=== PATIENT | male | born 1950 | race Caucasian/White ===

== ENCOUNTER → 2018-02-12 | Outpatient (CLI) | payer MEDICARE, OTHER ==
[~2018-02-12] MED LIST: ASPIRIN 32325 MG/TAB PO; GLUCOSAMINE CHO1 CA1 PO; LOPRESSOR 225 MG/TAB PO; MULTIPLE VITAMI1 CAP PO; PRILOSEC 20MG20 MG PO; ZOCOR 40MG40 MG PO; calcium PO
== END ==
LOC: COL.CARD 10:52
DX: R00.2 Palpitations (principal); R07.9 Chest pain, unspecified

== ENCOUNTER → 2018-02-25 | Outpatient (CLI) | payer MEDICARE, OTHER | LOC: COL.RAD 09:33 | DX: M99.71 Connective tissue and disc stenosis of intervertebral foramina of cervical region (principal); M47.812 Spondylosis without myelopathy or radiculopathy, cervical region ==

== ENCOUNTER 2018-07-02 13:06 | Emergency (ER) | payer MEDICARE, OTHER ==
[2004-11-14 20:17] VITALS: BP 135/89
[~2018-07-02] VITALS: Ht 188 cm; Wt 84.1 kg
[2018-07-02 13:14] VITALS: TEMP 98
[2018-07-02 13:52] LABS: BASO # 0.1 (0.0-0.2); BASO % 0.6 % (0.0-2.0); EOS # 0.3 (0.0-0.7); EOS % 2.9 % (0-4.0); GRAN # 6.1 (1.4-6.5); HEMATOCRIT 43.7 % (42.0-52.0); HEMOGLOBIN 14.7 g/dl (13.5-18.0); LYMPH # 2.4 (1.2-3.4); LYMPH % 25.4 % (20.0-51.0); MEAN CELL VOLUME 94 fl (80.0-100.0); MEAN CORPUSCULAR HEMOGLOBIN 32 pg (27.0-31.0); MEAN CORPUSCULAR HGB CONC 34 g/dl (33.0-37.0); MEAN PLATELET VOLUME 10.3 fl (7.4-10.4); MONO # 0.6 (0.1-0.6); MONO % 6.5 % (1.7-9.3); PLATELET COUNT 214 K/mm3 (130-400); RED BLOOD COUNT 4.65 M/mm3 (4.20-5.60); REDCELL DISTRIBUTION WIDTH-CV 12.1 % (11.5-14.5)
[2018-07-02 14:03] LABS: ALANINE AMINOTRANSFERASE 35 U/L (21-72); ALBUMIN 4.4 gm/dL (3.5-5.0); ALKALINE PHOSPHATASE 92 U/L (50-136); ANION GAP 9 mmol/L (7-16); AST,SGOT 31 U/L (15-37); BILIRUBIN,TOTAL 0.4 mg/dL (0.0-1.0); BLOOD UREA NITROGEN 16 mg/dL (9-20); CALCIUM 9.5 mg/dL (8.4-10.2); CARBON DIOXIDE 28 mmol/L (22-30); CHLORIDE 102 mmol/L (98-107); CREATININE, serum 0.89 mg/dL (0.66-1.25); GLUCOSE 97 mg/dL (74-106); POTASSIUM 4.2 mmol/L (3.4-5.0); SODIUM 139 mmol/L (137-145); TOTAL PROTEIN 7.8 gm/dL (6.4-8.2)
[2018-07-02 14:05] LABS: C-REACTIVE PROTEIN < 0.5 mg/dL (0.0-0.9)
[2018-07-02 14:37] LABS: COLLECTION METHOD CLEAN CATCH
[2018-07-02 14:50] LABS: MUCOUS Present /lpf; PH 5 (5-8); SQUAMOUS EPITHELIAL None Seen /hpf; URINE APPEARANCE Clear; URINE BACTERIA None Seen /hpf; URINE BILIRUBIN Negative (NEGATIVE); URINE BLOOD Negative (NEGATIVE); URINE COLOR Yellow; URINE GLUCOSE Negative (NEGATIVE); URINE KETONE Trace (NEGATIVE); URINE LEUKOCYTE ESTERASE Negative (NEGATIVE); URINE NITRATE Negative (NEGATIVE); URINE PROTEIN(semi-quant) Negative (NEGATIVE); URINE UROBILINOGEN Negative (NEGATIVE)
[2018-07-02 16:21] VITALS: BP 171/91; PULSE 74
== END 2018-07-02 16:29 | disposition home or self-care (01) ==
LOC: COL.ER 13:06
PROVIDERS: Physician Assistant
DX: N20.1 Calculus of ureter (principal); N23 Unspecified renal colic; I10 Essential (primary) hypertension; E78.5 Hyperlipidemia, unspecified; K21.9 Gastro-esophageal reflux disease without esophagitis; Z79.82 Long term (current) use of aspirin
CPT/HCPCS: J1170; J1885; J2405; J7030; Q9967

== ENCOUNTER → 2018-07-02 | Outpatient (CLI) | payer MEDICARE, OTHER | LOC: COL.RAD 11:52 | DX: R31.9 Hematuria, unspecified (principal); R10.9 Unspecified abdominal pain ==

== ENCOUNTER 2020-03-15 10:29 | Day surgery (SDC) | payer MEDICARE, OTHER ==
[2004-11-14 20:17] VITALS: BP 135/89
[2020-03-15] VITALS (9 sets, daily range): BP systolic 121–137; BP diastolic 64–79; PULSE 62–71; TEMP 97.7–98.2
[~2020-03-15] VITALS: Ht 188 cm; Wt 79.4 kg
[2020-03-15] MEDS ORDERED: ROXICODONE 55 MG/TAB PO (13:40)
--- NOTE | 2020-03-15 14:20 | NUR ---
Pt arrived back to room post procedure with [employer], Risa, via cart. Pt awake but slightly drowsy and is oriented. Pt states that he has some pain in left inguinal area 5/10 with a pressure quality. VSS and WNL upon return to room. , Theodora, at bedside and patient is pleasant. Denies nausea at this time but is belching occassionally. Call light within reach.
--- NOTE | 2020-03-15 14:30 | NUR ---
Pt states that his pain is increasing. Percocet brought per request and patient swallowed water with pill with no issues. Encouraged pt to eat some pudding with pill to help prevent GI upset, and he agreed. He successfully ate 2 puddings with no issues. Pt's 3 bandaid sites are CDI and abdomen is soft.
--- NOTE | 2020-03-15 14:45 | NUR ---
Pt sitting with HOB elevated drinking water and eating pudding. Pain still 5/10 left inguinal area. Dressings CDI. Call light within reach.
--- NOTE | 2020-03-15 15:00 | NUR ---
Pt sitting with HOB elevated, still with pain in abdoment and inguinal area. Abdomen continues to be soft and dressings CDI. VSS and WNL. Educated patient and pain can be related to air in abdoment from surgery and encouraged patient to move around in bed and at home to assist with air reabsorption. Pt denies nausea at this time.
--- NOTE | 2020-03-15 15:15 | NUR ---
Pt states that his pain is starting to "recede". Pt dangling on side of bed and then up to BR with SBA with no issues. Unsuccessful at this time with urination. Encouraged more movement to assist with air reabsorption and to encourage urination. VSS and WNL
--- NOTE | 2020-03-15 15:30 | NUR ---
Pt sitting on side on bed in room and drinking Pepsi to assist. Pt states he is ready to go home.
--- NOTE | 2020-03-15 16:00 | NUR ---
Pt up to BR again. Pt meets criteria for discharge. Reviewed discharge information including education packet and new medication education. Answered all questions including signs/symptoms to watch for, when to call the physician, and when to go to ED. Pt discharged VSS and WNL and with .
== END 2020-03-15 16:15 | disposition home or self-care (01) ==
LOC: SDCO 10:29
DX: K40.90 Unilateral inguinal hernia, without obstruction or gangrene, not specified as recurrent (principal); I10 Essential (primary) hypertension; K21.9 Gastro-esophageal reflux disease without esophagitis; E78.00 Pure hypercholesterolemia, unspecified; E78.5 Hyperlipidemia, unspecified; Z79.82 Long term (current) use of aspirin; I48.92 Unspecified atrial flutter; Z20.828 Contact with and (suspected) exposure to other viral communicable diseases; Z80.0 Family history of malignant neoplasm of digestive organs; Z79.899 Other long term (current) drug therapy
CPT/HCPCS: C1781; J0690; J1100; J1885; J2405; J2704; J3010; J7120